=== PATIENT | female | born 1990 | race Hispanic/Latino ===

== ENCOUNTER 2021-09-20 19:51 | Emergency (ER) | payer BC ==
[~2021-09-20] VITALS: Ht 160 cm; Wt 78.5 kg
[2021-09-20 20:15] VITALS: BP 112/68
== END 2021-09-20 20:51 | disposition home or self-care (01) ==
LOC: EDH 19:51
DX: Z48.01 Encounter for change or removal of surgical wound dressing (principal)
CPT/HCPCS: 99281